=== PATIENT | male | born 1975 | race Caucasian/White ===

== ENCOUNTER 2020-05-16 05:02 | Emergency (ER) | payer SELFPAY ==
[~2020-05-16] VITALS: Ht 177.8 cm; Wt 79.5 kg
[2020-05-16] MEDS ORDERED: KETOROLAC 15 MG/ML VIAL. IVP ONE (05:30)
[2020-05-16] MEDS ORDERED: IV NORMAL SALINE 1000ML BAG 1,000 ML IV ONE (05:30)
[2020-05-16 05:36] LABS: BASO # 0.1 x10^3/uL (0.0-0.2); BASO % 1 % (0-3); EOS # 0.2 x10^3/uL (0.0-0.7); EOS % 2 % (0-3); HEMATOCRIT 47.6 % (39.0-53.0); HEMOGLOBIN 16.5 g/dL (13.0-17.5); LYMPH # 3.5 x10^3/uL (1.0-4.8); LYMPH % 36 % (24-48); MEAN CORPUSCULAR HEMOGLOBIN 31 pg (25-35); MEAN CORPUSCULAR HGB CONC 35 g/dL (31-37); MEAN CORPUSCULAR VOLUME 89 fL (79-100); MONO # 0.8 x10^3/uL (0.0-1.1); MONO % 9 % (0-9); NEUT % 52 % (31-73); PLATELET COUNT 263 x10^3/uL (140-400); RED BLOOD COUNT 5.38 x10^6/uL (4.30-5.70); RED CELL DISTRIBUTION WIDTH 13.4 % (11.5-14.5); WHITE BLOOD COUNT 9.7 x10^3/uL (4.0-11.0)
--- NOTE | 2020-05-16 05:39 | PHYS DOC ---
General Adult EDM: Chief Complaint: FLANK PAIN HPI: HPI: 44-year-old male past medical history of occasional marijuana use, presents the ED with complaints of sharp right flank pain that has been intermittently radiating into his right groin over the past week (pain has been moving/difficult to localize), now feels as if it is in his right testicle. Patient states " I read up and I think it is my prostate or my hernia is incarcerated." Pt is not a HCW. Reports associated difficulties starting urinary stream and dysuria with suprapubic pain. No hematuria, fever, urethral discharge, rash, nausea or vomiting. Patient does not want any "strong medication" that would make him nauseous. No h/o nephrolithiasis. Denies any IV drug use. History of bilateral hernia surgeries. (JUAN DANIEL HUNT DO) Review of Systems: Review of Systems: Constitutional: Denies fever or chills. [] Eyes: Denies change in visual acuity. [] HENT: Denies nasal congestion or sore throat. [] Respiratory: Denies cough or shortness of breath. [] Cardiovascular: Denies chest pain or edema. [] GI: Denies nausea, vomiting, bloody stools or diarrhea. [] : Denies hematuria Musculoskeletal: Denies joint pain or swelling Integument: Denies rash or crepitus Neurologic: Denies headache, focal weakness or sensory changes, no saddle anesthesia or neck stiffness Endocrine: Denies polyuria or polydipsia. [] Lymphatic: Denies swollen glands. [] Psychiatric: Denies depression or anxiety. [] (JUAN DANIEL HUNT DO) Heart Score: Risk Factors: Risk Factors: DM, Current or recent (<one month) smoker, HTN, HLP, family history of CAD, obesity. Risk Scores: Score 0 - 3: 2.5% MACE over next 6 weeks - Discharge Home Score 4 - 6: 20.3% MACE over next 6 weeks - Admit for Clinical Observation Score 7 - 10: 72.7% MACE over next 6 weeks - Early Invasive Strategies (JUAN DANIEL HUNT DO) Current Medications: Current Medications Medications (Trade) Dose Ordered Sig/Shanice Start Time Stop Time Status Last Admin Dose Admin Ketorolac Tromethamine (Toradol 15mg Vial) 15 mg 1X ONCE 05/16/20 05:30 05/16/20 05:31 UNV Sodium Chloride 1,000 ml @ 1,000 mls/hr 1X ONCE 05/16/20 05:30 05/16/20 06:29 UNV (JUAN DANIEL HUNT DO) Current Medications Sodium Chloride 1,000 ml @ 1,000 mls/hr 1X ONCE IV Last administered on 05/16/20at 05:45; Start 05/16/20 at 05:30; Stop 05/16/20 at 06:29; Status DC Ketorolac Tromethamine (Toradol 15mg Vial) 15 mg 1X ONCE IVP Last administered on 05/16/20at 05:45; Start 05/16/20 at 05:30; Stop 05/16/20 at 05:51; Status DC Morphine Sulfate (Morphine Sulfate) 4 mg 1X ONCE IV Last administered on 05/16/20at 06:40; Start 05/16/20 at 06:30; Stop 05/16/20 at 06:31; Status DC Ondansetron HCl (Zofran) 4 mg 1X ONCE IVP Last administered on 05/16/20at 06:41; Start 05/16/20 at 06:30; Stop 05/16/20 at 06:31; Status DC (DAYNA RUELAS MD) Allergies: Allergies: Allergies Coded Allergies Type Severity Reaction Last Updated Verified No Known Drug Allergies 05/16/20 No (JUAN DANIEL HUNT DO) Physical Exam: PE: Constitutional: Writhing in pain, afebrile, atheletic male HENT: Normocephalic, atraumatic, Eyes: PERRLA, EOMI, conjunctiva normal, no discharge. [] Neck: Normal range of motion, supple, Cardiovascular: S1 and S2 present, tachycardic-109 Lungs & Thorax: Speaking in full sentences, bilateral equal chest rise Abdomen: soft, no masses, no pulsatile masses, pain over right inguinal crease with no increased fullness when compared to left side Skin: Warm, dry, no erythema, no rash. [] Back: No midline tenderness, +right CVA tenderness. [] Extremities: No tenderness, no cyanosis, no clubbing, ROM intact, no edema. [] Neurologic: Alert and oriented X 3, normal motor function, normal sensory function, no focal deficits noted. [] Psychologic: Affect normal, judgement normal, mood normal. [] : Chaperoned by RN, external genitalia normal, penis piercing, no rash, pt refused any hernia check/inguinal ring exam and prostate exam ([facility],JUAN DANIEL Martin DO) PE: Patient alert and oriented x4, neurologically intact. Patient has some inguinal tenderness on the right side. (DAYNA RUELAS MD) Current Patient Data: Labs: Laboratory Tests Test 05/16/20 05:16 05/16/20 05:28 05/16/20 07:16 White Blood Count 9.7 x10^3/uL Red Blood Count 5.38 x10^6/uL Hemoglobin 16.5 g/dL Hematocrit 47.6 % Mean Corpuscular Volume 89 fL Mean Corpuscular Hemoglobin 31 pg Mean Corpuscular Hemoglobin Concent 35 g/dL Red Cell Distribution Width 13.4 % Platelet Count 263 x10^3/uL Neutrophils (%) (Auto) 52 % Lymphocytes (%) (Auto) 36 % Monocytes (%) (Auto) 9 % Eosinophils (%) (Auto) 2 % Basophils (%) (Auto) 1 % Neutrophils # (Auto) 5.0 x10^3/uL Lymphocytes # (Auto) 3.5 x10^3/uL Monocytes # (Auto) 0.8 x10^3/uL Eosinophils # (Auto) 0.2 x10^3/uL Basophils # (Auto) 0.1 x10^3/uL Sodium Level 139 mmol/L Potassium Level 4.2 mmol/L Chloride Level 104 mmol/L Carbon Dioxide Level 27 mmol/L Anion Gap 8 Blood Urea Nitrogen 13 mg/dL Creatinine 1.5 mg/dL Estimated GFR (Cockcroft-Gault) 50.6 BUN/Creatinine Ratio 9 Glucose Level 100 mg/dL Lactic Acid Level 1.0 mmol/L Calcium Level 9.1 mg/dL Total Bilirubin 0.2 mg/dL Aspartate Amino Transf (AST/SGOT) 25 U/L Alanine Aminotransferase (ALT/SGPT) 57 U/L Alkaline Phosphatase 54 U/L Total Protein 7.1 g/dL Albumin 3.5 g/dL Albumin/Globulin Ratio 1.0 Lipase 80 U/L Urine Collection Type Void Urine Color Yellow Urine Clarity Cloudy Urine pH 7.5 Urine Specific Eugene 1.025 Urine Protein 30 mg/dL Urine Glucose (UA) Negative mg/dL Urine Ketones (Stick) Negative mg/dL Urine Blood Negative Urine Nitrite Negative Urine Bilirubin Negative Urine Urobilinogen Dipstick 1.0 mg/dL Urine Leukocyte Esterase Negative Urine RBC 0 /HPF Urine WBC 0 /HPF Urine Amorphous Sediment Present /HPF Urine Bacteria 0 /HPF Current Medications Medications (Trade) Dose Ordered Sig/Shanice Route PRN Reason Start Time Stop Time Status Last Admin Dose Admin Sodium Chloride 1,000 ml @ 1,000 mls/hr 1X ONCE IV 05/16/20 05:30 05/16/20 06:29 DC 05/16/20 05:45 Ketorolac Tromethamine (Toradol 15mg Vial) 15 mg 1X ONCE IVP 05/16/20 05:30 05/16/20 05:51 DC 05/16/20 05:45 Morphine Sulfate (Morphine Sulfate) 4 mg 1X ONCE IV 05/16/20 06:30 05/16/20 06:31 DC 05/16/20 06:40 Ondansetron HCl (Zofran) 4 mg 1X ONCE IVP 05/16/20 06:30 05/16/20 06:31 DC 05/16/20 06:41 Vital Signs: Vital Signs Date Time Temp Pulse Resp B/P (MAP) Pulse Ox O2 Delivery O2 Flow Rate FiO2 05/16/20 07:09 85 18 151/68 (95) 98 Room Air 05/16/20 06:40 98 Room Air 05/16/20 05:12 98.3 109 13 131/90 (104) 98 Room Air 98.3 (DAYNA RUELAS MD) EKG: EKG: [] (JUAN DANIEL HUNT DO) Radiology/Procedures: Radiology/Procedures: [] (JUAN DANIEL HUNT DO) Radiology/Procedures: [facility] [address] [place] [address] IMAGING REPORT Signed PATIENT: HUGO VERA ACCOUNT: [id number] : 1975 LOCATION: ER AGE: 44 SEX: M EXAM STATUS: REG ER ORD. PHYSICIAN: JUAN DANIEL HUNT DO REASON: right flank pain into groin, r/o stone PROCEDURE: CT ABDOMEN PELVIS WO CONTRAST Study: CT abdomen/pelvis without intravenous contrast Indication: Right flank pain. Comparison: 02/28/2013 Technique: Helical CT imaging performed of the abdomen and pelvis without the use of intravenous contrast. Sagittal and coronal reformats were obtained. One or more of the following individualized dose reduction techniques were utilized for this examination: 1. Automated exposure control 2. Adjustment of the mA and/or kV according to patient size 3. Use of iterative reconstruction technique. Findings: Inherently limited evaluation without intravenous contrast. No suspicious nodule based on size at the lower lungs. Small right lower lobe cystic focus. Unremarkable visualized mediastinal contents. No focal hepatic parenchymal abnormality is identified. The liver is prominent in size. Mostly collapsed gallbladder. Within normal limits pancreas, spleen and adrenal glands. No nephrolithiasis identified on either side. No hydronephrosis. Unremarkable bladder. The prostate measures 4 cm transverse with small internal foci of mineralization. The bowel is not well evaluated without oral contrast. A few colonic diverticuli without diverticulitis. Normal appendix, image 140 series 2. No pathologic dilatation of small bowel to suggest obstruction. Unremarkable stomach. Scattered calcific atherosclerosis. Nonaneurysmal aorta. Limited ability to distinguish individual lymph nodes given patient body habitus and lack of contrast. Lymph nodes that are visualized are within normal limits for size. No free fluid or pneumoperitoneum. No acute or aggressive osseous process. Disc space collapse at L5-S1 with endplate osteophytic ridging. Impression: No acute abnormality is identified throughout the abdomen or pelvis. Specifically, no nephrolithiasis or collecting system dilatation on either side. Electronically signed by: JEANNE BLANC MD (05/16/2020 6:07 AM) [id number] DICTATED and SIGNED BY: JEANNE BLANC MD DATE: 05/16/20 0607 [facility] [address] [place] [address] IMAGING REPORT Signed PATIENT: HGUO VERA ACCOUNT: [id number] : 1975 LOCATION: ER AGE: 44 SEX: M EXAM STATUS: REG ER ORD. PHYSICIAN: DAYNA RUELAS MD REASON: testicular pain PROCEDURE: TESTICULAR/SCROTUM CLINICAL HISTORY: Reason: testicular pain / Spl. Instructions: / History: COMPARISON: None TECHNIQUE: Ultrasound images of the scrotum was performed with lopez-scale and color doppler. FINDINGS: The right testis measures 3.4 x 1.8 x 2 cm. The left testis measures 3.3 x 2.3 x 2 cm. There is no intratesticular abnormality. Testicular vascularity is symmetric and within normal limits. The epididymis is normal in appearance bilaterally. Bilateral varicoceles are seen. No definite hydroceles are identified. IMPRESSION: Flow seen to both testes. No evidence for testicular torsion. Bilateral varicoceles are seen. Electronically signed by: Abdon Wilkins MD (05/16/2020 7:27 AM) [id number] DICTATED and SIGNED BY: ABDON WILKINS MD DATE: 05/16/20726 (DAYNA RUELAS MD) Course & Med Decision Making: Course & Med Decision Making Pertinent Labs and Imaging studies reviewed. (See chart for details) Concern for right flank pain radiating into the groin, high suspicion is for obstructive nephrolithiasis the UVJ. Urine labs and CT imaging pending. Differential does include incarcerated hernia versus testicular process. Due to shift change patient was signed out to oncoming physician Dr. Ruelas for further evaluation and disposition. (JUAN DANIEL HUNT DO) Course & Med Decision Making Received signout from Dr. Hunt regarding Mr. Vera. Patient has had little over week of right flank pain that radiates to his right inguinal area. Patient has tenderness in the right inguinal region on my exam. Patient CT was negative for kidney stones. Patient has a testicle ultrasound shows varicoceles. Patient was having quite a bit discomfort on my initial assessment was given morphine and when he was reassessed was feeling significantly better. Patient will be discharged home with follow-up with urology. Return precautions given. (DAYNA RUELAS MD) Dragon Disclaimer: Dragon Disclaimer: This electronic medical record was generated, in whole or in part, using a voice recognition dictation system. (JUAN DANIEL HUNT DO) Departure Departure Impression: Primary Impression: Right flank pain Additional Impression: Varicocele Disposition: 01 DC HOME SELF CARE/HOMELESS Condition: STABLE Referrals: NON,STAFF (PCP) Dr. Jones Tejada MD Urologist in [place], [place] Address: [address] [place] [address], [place] [address] Patient Instructions: Flank Pain Additional Instructions: EMERGENCY DEPARTMENT GENERAL DISCHARGE INSTRUCTIONS THANK YOU for coming to [facility] Emergency Department (ED) today and trusting us with your care. We trust that you had a positive experience in our Emergency Department. If you wish to speak to the department Management you can contact the jewelry department supervisor at . YOUR FOLLOW UP INSTRUCTIONS ARE FOLLOWS: Do you have a private doctor? If you do not have a private doctor, please ask for a resource list of physicians or clinics that may be able to assist you with follow up care. The Emergency Physician has interpreted your x-rays. The X-ray specialist will also review them. If there is a change in the findings you will be notified in 48 hours when at all possible. A lab test or lab culture may have been done, your results will be reviewed and you will be notified if you need a change in treatment. ADDITIONAL INSTRUCTIONS AND INFORMATION Your care today has been supervised by a physician who is specially trained in emergency care. Many problems require more than one evaluation for a complete diagnosis and treatment. We recommend that you schedule your follow up appointment as recommended to ensure complete treatment of your illness or injury. If you are unable to obtain follow up care and continue to have a problem, or if your condition worsens we recommend that you return to the ED. We are not able to safely determine your condition over the phone nor are we able to give sound medical advice over the phone. For these safety reasons, if you call for medical advice we will ask you to come to the ED for further evaluation If you have any questions regarding these discharge instructions please call the ED at . SAFETY INFORMATION In the interest of safety, wellness, and injury prevention; we encourage you to wear your seatbelt, if you smoke; quit smoking, and we encourage your family to use protective helmet for bicycling and other sporting events that present an increased risk for head injury. IF YOUR SYMPTOMS WORSEN OR NEW SYMPTOMS DEVELOP, OR YOU HAVE CONCERNS ABOUT YOUR CONDITION; OR IF YOUR CONDITION WORSENS WHILE YOU ARE WAITING FOR YOUR FOLLOW UP APPOINTMENT; EITHER CONTACT YOUR PRIMARY CARE DOCTOR, THE PHYSICIAN WHOSE NAME AND NUMBER YOU WERE GIVEN, OR RETURN TO THE ED IMMEDIATELY. You have varicoceles on your testicular ultrasound need to follow-up with urology for these. Return if increased pain, fever, increased swelling. Scripts Ondansetron Hcl (ZOFRAN) 4 Mg Tablet 1 TAB PO Q6HRS for nausea, #10 TAB Prov: DAYNA RUELAS MD 05/16/20 Hydrocodone/Apap 5-325 (NORCO 5-325 TABLET) 1 Each Tablet 1-2 EACH PO PRN Q6HRS PRN for PAIN, #15 as needed for pain Prov: DAYNA RUELAS MD 05/16/20 JUAN DANIEL HUNT DO May 16, 2020 05:39 DAYNA RUELAS MD May 16, 2020 06:20
[2020-05-16 05:47] LABS: CALCIUM 9.1 mg/dL (8.5-10.1); CREATININE 1.5 mg/dL (0.7-1.3); GFR 50.6; POTASSIUM 4.2 mmol/L (3.5-5.1)
[2020-05-16 05:52] LABS: ALBUMIN 3.5 g/dL (3.4-5.0); TOTAL BILIRUBIN 0.2 mg/dL (0.2-1.0); TOTAL PROTEIN 7.1 g/dL (6.4-8.2)
--- NOTE | 2020-05-16 06:10 | RAD ---
Study: CT abdomen/pelvis without intravenous contrast Indication: Right flank pain. Comparison: 02/28/2013 Technique: Helical CT imaging performed of the abdomen and pelvis without the use of intravenous contrast. Sagittal and coronal reformats were obtained. One or more of the following individualized dose reduction techniques were utilized for this examination: 1. Automated exposure control 2. Adjustment of the mA and/or kV according to patient size 3. Use of iterative reconstruction technique. Findings: Inherently limited evaluation without intravenous contrast. No suspicious nodule based on size at the lower lungs. Small right lower lobe cystic focus. Unremarkable visualized mediastinal contents. No focal hepatic parenchymal abnormality is identified. The liver is prominent in size. Mostly collapsed gallbladder. Within normal limits pancreas, spleen and adrenal glands. No nephrolithiasis identified on either side. No hydronephrosis. Unremarkable bladder. The prostate measures 4 cm transverse with small internal foci of mineralization. The bowel is not well evaluated without oral contrast. A few colonic diverticuli without diverticulitis. Normal appendix, image 140 series 2. No pathologic dilatation of small bowel to suggest obstruction. Unremarkable stomach. Scattered calcific atherosclerosis. Nonaneurysmal aorta. Limited ability to distinguish individual lymph nodes given patient body habitus and lack of contrast. Lymph nodes that are visualized are within normal limits for size. No free fluid or pneumoperitoneum. No acute or aggressive osseous process. Disc space collapse at L5-S1 with endplate osteophytic ridging. Impression: No acute abnormality is identified throughout the abdomen or pelvis. Specifically, no nephrolithiasis or collecting system dilatation on either side. Electronically signed by: JEANNE BLANC MD (05/16/2020 6:07 AM) [id number]
[2020-05-16] MEDS ORDERED: MORPHINE SULFATE 4 MG/ML VIAL. IV ONE (06:30)
[2020-05-16] MEDS ORDERED: ONDANSETRON PF 4 MG/2 ML VIAL. IVP ONE (06:30)
[2020-05-16 07:09] VITALS: BP 151/68
[2020-05-16 07:25] LABS: BILIRUBIN,URINE NEGATIVE (NEG); CLARITY,URINE CLOUDY; COLOR,URINE YELLOW; NITRITE,URINE NEGATIVE (NEG); PH,URINE 7.5 (<5.0-8.0); PROTEIN,URINE 30 mg/dL (NEG-TRACE)
--- NOTE | 2020-05-16 07:31 | RAD ---
CLINICAL HISTORY: Reason: testicular pain / Spl. Instructions: / History: COMPARISON: None TECHNIQUE: Ultrasound images of the scrotum was performed with lopez-scale and color doppler. FINDINGS: The right testis measures 3.4 x 1.8 x 2 cm. The left testis measures 3.3 x 2.3 x 2 cm. There is no intratesticular abnormality. Testicular vascularity is symmetric and within normal limits. The epididymis is normal in appearance bilaterally. Bilateral varicoceles are seen. No definite hydroceles are identified. IMPRESSION: Flow seen to both testes. No evidence for testicular torsion. Bilateral varicoceles are seen. Electronically signed by: Abdon Narayanan MD (05/16/2020 7:27 AM) [id number]
[2020-05-16 07:36] LABS: AMORPHOUS SEDIMENT,UR PRESENT /HPF; BACTERIA,URINE 0 /HPF (0-FEW); RBC,URINE 0 /HPF (0-2); WBC,URINE 0 /HPF (0-4)
[2020-05-16] MEDS ORDERED: HYDR-3164 PO (07:48)
[2020-05-16] MEDS ORDERED: ONDA4TAB7 PO (07:48)
== END 2020-05-16 07:55 | disposition home or self-care (01) ==
LOC: ER 05:02
DX: R10.30 Lower abdominal pain, unspecified (principal); I86.1 Scrotal varices; F12.90 Cannabis use, unspecified, uncomplicated; R30.0 Dysuria; N50.811 Right testicular pain
CPT/HCPCS: 36415; 74176; 76870; 80053; 81001; 83605; 83690; 85025; 96361; 96374; 96375; 99285; J1885; J2270; J2405; J7030